=== PATIENT | female | born 1980 | race American Indian/Alaskan Native ===

== ENCOUNTER 2020-06-22 10:30 | Emergency (ER) | payer SELFPAY ==
[2020-06-22] MEDS ORDERED: HYDROcodone/ACETAMINOPHEN 5-325 MG TAB PO ONE (11:32)
[2020-06-22 11:33] LABS: Bacteria,Urine 4+ /HPF (Negative); Bilirubin,Urine NEG (Negative); Blood,Urine NEG (Negative); Color,Urine Yellow (Yellow); Urobilinogen,Urine < 2.0 mg/dL (<2.0)
[2020-06-22] MEDS ORDERED: amLODIPine 5 MG TAB PO ONE (11:33)
[2020-06-22 11:34] LABS: WBC,Urine > 182.0 /HPF (0.0-6.0)
--- NOTE | 2020-06-22 11:39 | Emergency Department Report ---
ED General Adult HPI - General Chief complaint: Urogenital-Female Stated complaint: UTI/LOW BACK PAIN PUI?: No Time Seen by Provider: 06/22/20 11:26 Source: patient Mode of arrival: Ambulatory Limitations: No Limitations - History of Present Illness Initial comments: This is a 40-year-old female who was previously treated for hypertension in . Perhaps she has not been seen by a physician in some time. She states that her blood pressure was monitored after her and improved and she is now off medication. She states that she was concerned that she might have a UTI because her lower back hurts. She has experienced that before. She does not describe any CVA area pain. She states the lower back pain is bilateral and exacerbated by movement largely a soreness. He does not report any focal neurological change. She does not report incontinence or urinary retention. - Related Data Previous Rx's Medication Instructions Recorded Last Taken Type Acetaminophen/Codeine [Tylenol 1 tab PO Q6H PRN #10 tab 07/06/13 Unknown Rx /Codeine # 3 tab] Acetaminophen/Codeine [Tylenol 1 tab PO Q6H PRN #15 tab 01/09/14 Unknown Rx /Codeine # 3 tab] Naproxen Sodium (Nf) [Anaprox DS 550 mg PO BID PRN #14 tablet 01/09/14 Unknown Rx TAB] methOCARBAMOL [Robaxin TAB] 750 mg PO Q8H PRN #21 tablet 01/09/14 Unknown Rx traMADoL [Ultram 50 MG tab] 50 mg PO Q6HR PRN #15 tablet 12/03/14 Unknown Rx levoFLOXacin [Levaquin TAB] 500 mg PO QDAY #3 tablet 03/06/15 Unknown Rx HYDROcodone/APAP 5-325 [[place] 1 each PO Q6HR PRN #7 tablet 06/22/20 Unknown Rx 5/325] amLODIPine 5 mg PO DAILY #30 tab 06/22/20 Unknown Rx cefUROXime [Ceftin] 250 mg PO Q12H #20 tablet 06/22/20 Unknown Rx metFORMIN [Glucophage] 500 mg PO BID #60 tablet 06/22/20 Unknown Rx Allergies Allergy/AdvReac Type Severity Reaction Status Date / Time No Known Allergies Allergy Verified 05/10/13 16:00 ED Review of Systems ROS: Stated complaint: UTI/LOW BACK PAIN Other details as noted in HPI Constitutional: denies: chills, fever Eyes: denies: eye pain, eye discharge, vision change ENT: denies: ear pain, throat pain Respiratory: denies: cough, shortness of breath, wheezing Cardiovascular: denies: chest pain, palpitations Endocrine: no symptoms reported Gastrointestinal: denies: abdominal pain, nausea, diarrhea Genitourinary: as per HPI, urgency, dysuria. denies: discharge Musculoskeletal: as per HPI, back pain. denies: joint swelling, arthralgia Skin: denies: rash, lesions Neurological: denies: headache, weakness, paresthesias Psychiatric: denies: anxiety, depression Hematological/Lymphatic: denies: easy bleeding, easy bruising ED Past Medical Hx - Past Medical History Previous Medical History?: Yes Hx Hypertension: Yes (with ) Hx Heart Attack/AMI: No Hx Congestive Heart Failure: No Hx Diabetes: No Hx Deep Vein Thrombosis: No Hx Pulmonary Embolism: No Hx Liver Disease: No Hx Renal Disease: No Hx Sickle Cell Disease: No Hx Headaches / Migraines: No Hx Seizures: No Hx Asthma: No Hx COPD: No Hx Tuberculosis: No Hx HIV: No - Surgical History Past Surgical History?: Yes Additional Surgical History: D&C - Social History Smoking Status: Never Smoker - Medications Home Medications: Home Medications Medication Instructions Recorded Confirmed Last Taken Type Acetaminophen/Codeine [Tylenol 1 tab PO Q6H PRN #10 tab 07/06/13 10/02/13 Unknown Rx /Codeine # 3 tab] Acetaminophen/Codeine [Tylenol 1 tab PO Q6H PRN #15 tab 01/09/14 Unknown Rx /Codeine # 3 tab] Naproxen Sodium (Nf) [Anaprox DS 550 mg PO BID PRN #14 tablet 01/09/14 Unknown Rx TAB] methOCARBAMOL [Robaxin TAB] 750 mg PO Q8H PRN #21 tablet 01/09/14 Unknown Rx traMADoL [Ultram 50 MG tab] 50 mg PO Q6HR PRN #15 tablet 12/03/14 Unknown Rx levoFLOXacin [Levaquin TAB] 500 mg PO QDAY #3 tablet 03/06/15 Unknown Rx HYDROcodone/APAP 5-325 [[place] 1 each PO Q6HR PRN #7 tablet 06/22/20 Unknown Rx 5/325] amLODIPine 5 mg PO DAILY #30 tab 06/22/20 Unknown Rx cefUROXime [Ceftin] 250 mg PO Q12H #20 tablet 06/22/20 Unknown Rx metFORMIN [Glucophage] 500 mg PO BID #60 tablet 06/22/20 Unknown Rx ED Physical Exam - General Limitations: No Limitations General appearance: alert, in no apparent distress - Head Head exam: Present: atraumatic, normocephalic - Eye Eye exam: Present: normal appearance. Absent: scleral icterus - ENT ENT exam: Present: mucous membranes moist - Neck Neck exam: Present: normal inspection - Respiratory Respiratory exam: Present: normal lung sounds bilaterally. Absent: respiratory distress - Cardiovascular Cardiovascular Exam: Present: regular rate, normal rhythm. Absent: systolic murmur, diastolic murmur, rubs, gallop - GI/Abdominal GI/Abdominal exam: Present: soft, normal bowel sounds. Absent: distended, tenderness, guarding, rebound, rigid - Extremities Exam Extremities exam: Present: normal inspection - Back Exam Back exam: Present: normal inspection, paraspinal tenderness (Lower lumbar bilateral). Absent: CVA tenderness (R), CVA tenderness (L), vertebral tend erness - Neurological Exam Neurological exam: Present: alert, oriented X3, CN II-XII intact, normal gait. Absent: motor sensory deficit - Psychiatric Psychiatric exam: Present: normal affect, normal mood - Skin Skin exam: Present: warm, dry, intact, normal color. Absent: rash ED Course Vital Signs 06/22/20 06/22/20 10:41 12:40 Temperature 98.3 F Pulse Rate 91 H 75 Respiratory 16 18 Rate Blood Pressure 199/113 Blood Pressure 175/97 [Right] O2 Sat by Pulse 100 98 Oximetry - Reevaluation(s) Reevaluation #1: Patient's blood pressure is somewhat improved. She is asymptomatic with respect to this. She had gestational diabetes. I have gone over the plan to initiate oral medication for hypertension and diabetes as well as her antibiotic. Follow-up instructions on her urine culture were given. 06/22/20 12:58 ED Medical Decision Making - Lab Data Result diagrams: 06/22/20 10:54 06/22/20 10:54 Laboratory Results - last 24 hr 06/22/20 06/22/20 10:54 11:20 WBC 7.5 RBC 5.00 Hgb 13.0 Hct 40.1 MCV 80 MCH 26 L MCHC 32 RDW 13.9 Plt Count 301 Lymph % (Auto) 41.9 H [place] % (Auto) 6.6 Eos % (Auto) 2.2 Baso % (Auto) 0.3 Lymph # (Auto) 3.1 [place] # (Auto) 0.5 Eos # (Auto) 0.2 Baso # (Auto) 0.0 Seg Neutrophils % 49.0 Seg Neutrophils # 3.7 Urine Color Yellow Urine Turbidity Cloudy Urine pH 6.0 Ur Specific [place] 1.015 Urine Protein 100 mg/dl Urine Glucose (UA) >=500 Urine Ketones Neg Urine Blood Neg Urine Nitrite Pos Urine Bilirubin Neg Urine Urobilinogen < 2.0 Ur Leukocyte Esterase Lg Urine WBC (Auto) > 182.0 H Urine RBC (Auto) 10.0 U Epithel Cells (Auto) 35.0 H Urine Bacteria (Auto) 4+ Laboratory Results - last 24 hr 06/22/20 06/22/20 06/22/20 10:54 10:54 11:20 WBC 7.5 RBC 5.00 Hgb 13.0 Hct 40.1 MCV 80 MCH 26 L MCHC 32 RDW 13.9 Plt Count 301 Lymph % (Auto) 41.9 H [place] % (Auto) 6.6 Eos % (Auto) 2.2 Baso % (Auto) 0.3 Lymph # (Auto) 3.1 [place] # (Auto) 0.5 Eos # (Auto) 0.2 Baso # (Auto) 0.0 Seg Neutrophils % 49.0 Seg Neutrophils # 3.7 Sodium 135 L Potassium 4.1 Chloride 99.1 Carbon Dioxide 29 Anion Gap 11 BUN 18 H Glucose 315 H Calcium 9.6 Urine Color Yellow Urine Turbidity Cloudy Urine pH 6.0 Ur Specific [place] 1.015 Urine Protein 100 mg/dl Urine Glucose (UA) >=500 Urine Ketones Neg Urine Blood Neg Urine Nitrite Pos Urine Bilirubin Neg Urine Urobilinogen < 2.0 Ur Leukocyte Esterase Lg Urine WBC (Auto) > 182.0 H Urine RBC (Auto) 10.0 U Epithel Cells (Auto) 35.0 H Urine Bacteria (Auto) 4+ Critical care attestation.: If time is entered above; I have spent that time in minutes in the direct care of this critically ill patient, excluding procedure time. ED Disposition Clinical Impression: Uncontrolled hypertension Urinary tract infection Qualifiers: Urinary tract infection type: acute cystitis Hematuria presence: without hematuria Qualified Code(s): N30.00 - Acute cystitis without hematuria Hyperglycemia due to type 2 diabetes mellitus Qualifiers: Diabetes mellitus fdc insulin use: without salvage determiner use Qualified Code(s): E11.65 - Type 2 diabetes mellitus with hyperglycemia Disposition: TO HOME OR SELFCARE Is pt being admited?: No Does the pt Need Aspirin: No Condition: Stable Instructions: Diabetes Mellitus Type 2 in Adults (ED), Hypertension (ED) Additional Instructions: Return worsening symptoms and especially if you develop fever or chills. Follow-up on your urine culture in 2 to 3 days. Begin medication for your blood pressure and diabetes. Follow-up care within the next 2 to 3 days as advised. Prescriptions: amLODIPine 5 mg PO DAILY #30 tab cefUROXime [Ceftin] 250 mg PO Q12H #20 tablet metFORMIN [Glucophage] 500 mg PO BID #60 tablet HYDROcodone/APAP 5-325 [[place] 5/325] 1 each PO Q6HR PRN #7 tablet PRN Reason: Pain Referrals: PRIMARY CARE, [Primary Care Provider] - 3-5 Days [facility] [Provider Group] - 2-3 Days Time of Disposition: 13:02
[2020-06-22 11:40] LABS: Basophils % (Auto) 0.3 % (0.0-1.8); Eosinophils # (Auto) 0.2 K/mm3 (0.0-0.4); Eosinophils % (Auto) 2.2 % (0.0-4.3); Hematocrit 40.1 % (30.3-42.9); Lymphocytes # (Auto) 3.1 K/mm3 (1.2-5.4); Lymphocytes % (Auto) 41.9 % (13.4-35.0); Mean Corpuscular HGB Conc 32 % (30-34); Mean Corpuscular Volume 80 fl (79-97); Monocytes # (Auto) 0.5 K/mm3 (0.0-0.8); Monocytes % (Auto) 6.6 % (0.0-7.3); Platelet Count 301 K/mm3 (140-440); Red Cell Distribution Width 13.9 % (13.2-15.2)
[2020-06-22] MEDS ORDERED: LIDOCAINE-MPF (1%) 10 MG/1 ML VIAL 5 ML INFILTRATI ONE (11:44)
[2020-06-22 11:58] LABS: Blood Urea Nitrogen 18 mg/dL (7-17); Calcium 9.6 mg/dL (8.4-10.2); Hemolysis Index 0
[2020-06-22 12:13] LABS: BUN/Creatinine Ratio 26
[2020-06-22 12:42] VITALS: BP 175/97
== END 2020-06-22 13:29 | disposition home or self-care (01) ==
LOC: ED 10:30
DX: N39.0 Urinary tract infection, site not specified (principal); E11.65 Type 2 diabetes mellitus with hyperglycemia; I10 Essential (primary) hypertension; Z79.899 Other long term (current) drug therapy
CPT/HCPCS: 36415; 80048; 81001; 85025; 99283; J0696